=== PATIENT | male | born 1990 ===

== ENCOUNTER 2018-08-30 06:23 | Emergency (ER) | payer OTHER ==
[2018-08-30] MEDS ORDERED: Albuterol-Ipratrop 3 mg / 0.5 (3 ml) UD INH STA (07:32)
[2018-08-30] MEDS ORDERED: Albuterol-Ipratrop 3 mg / 0.5 (3 ml) UD ONE (07:49)
[2018-08-30 08:04] LABS: BASO % 0.7 % (0.0-2.0); HEMOGLOBIN 13.1 g/dL (12.0-18.0); LYMPH # 0.5 K/uL (1.0-4.3); LYMPH % 20.9 % (20.0-40.0); MEAN CELL VOLUME 82.7 fl (80.0-94.0); MEAN CORPUSCULAR HEMOGLOBIN 28.9 pg (27.0-31.0); MEAN CORPUSCULAR HGB CONC 34.9 g/dL (33.0-37.0); MEAN PLATELET VOLUME 8.3 fl (7.2-11.7); MONO # 0.2 K/uL (0.0-0.8); NEUT # 1.8 K/uL (1.8-7.0); NEUT % 69.4 % (50.0-75.0); NRBC % 0.2 % (0.0-0.0); RBC 4.54 Mil/uL (4.40-5.90); RED CELL DISTRIBUTION WIDTH 12.7 % (11.5-14.5); WHITE BLOOD COUNT 2.6 K/uL (4.8-10.8)
[2018-08-30 08:08] LABS: BLOOD UREA NITROGEN 11 mg/dl (9-20); GFR NON-AFRICAN AMERICAN > 60
--- NOTE | 2018-08-30 08:24 | RAD ---
Date of service: 08/30/2018 HISTORY: cough COMPARISON: Chest radiographs 03/21/2009 TECHNIQUE: Chest PA and lateral views FINDINGS: LUNGS: No active pulmonary disease. PLEURA: No significant pleural effusion identified. No pneumothorax apparent. CARDIOVASCULAR: No aortic atherosclerotic calcification present. Normal cardiac size. No pulmonary vascular congestion. OSSEOUS STRUCTURES: No significant abnormalities. VISUALIZED UPPER ABDOMEN: Normal. OTHER FINDINGS: None. IMPRESSION: No interval acute cardiopulmonary disease appreciated.
--- NOTE | 2018-08-30 09:42 | ED PDOC ---
HPI: Chest Pain Time Seen by Provider: 08/30/18 07:24 Chief Complaint (Nursing): Chest Pain Chief Complaint (Provider): Chest Pain History Per: Patient History/Exam Limitations: no limitations Onset/Duration Of Symptoms: Days (2) Additional Complaint(s): 27 y/o male presents to the ED complaining of chest pain. Patient had 3 previous visits with sore throat and swollen lymph nodes. Initial diagnose with viral syndrome with no given medications. Patient 2nd visit was due to allergies with medications. He started Tendomisin medication yesterday. Patient states he woke up in the middle of the night around 4am with left sided chest pain with pressure. He reports when he came to the ER the pressure is still present but less sever. Patient denies any radiation of pain or shortness of breath. PMD: none provided Past Medical History Reviewed: Historical Data, Nursing Documentation, Vital Signs Vital Signs: Last Vital Signs Temp 100.1 F H 08/30/18 06:33 Pulse 90 08/30/18 06:33 Resp 17 08/30/18 06:33 BP 131/80 08/30/18 06:33 Pulse Ox 100 08/30/18 06:33 - Medical History PMH: Asthma - Family History Family History: States: Unknown Family Hx - Home Medications Home Medications: Ambulatory Orders Medication Instructions Recorded Ibuprofen [Motrin Tab] 800 mg PO Q8 PRN #15 tab 08/30/18 - Allergies Allergies/Adverse Reactions: Allergies Allergy/AdvReac Type Severity Reaction Status Date / Time No Known Allergies Allergy Verified 08/30/18 09:54 Review of Systems ROS Statement: Except As Marked, All Systems Reviewed And Found Negative Constitutional: Negative for: Fever Cardiovascular: Positive for: Chest Pain. Negative for: Orthopnea Gastrointestinal: Negative for: Nausea, Vomiting Musculoskeletal: Negative for: Arm Pain, Back Pain Neurological: Negative for: Weakness Physical Exam - Reviewed Nursing Documentation Reviewed: Yes Vital Signs Reviewed: Yes - Physical Exam Appears: Positive for: Well, Non-toxic, No Acute Distress Head Exam: Positive for: ATRAUMATIC, NORMOCEPHALIC Skin: Positive for: Normal Color, Warm, Dry Eye Exam: Positive for: EOMI, Normal appearance, PERRL ENT: Positive for: Normal ENT Inspection, Other (mild erythema). Negative for: TM Is/Are, Tonsillar Swelling Neck: Positive for: Normal, Painless ROM, Supple Cardiovascular/Chest: Positive for: Regular Rate, Rhythm. Negative for: Murmur Respiratory: Positive for: Normal Breath Sounds. Negative for: Respiratory Distress Gastrointestinal/Abdominal: Positive for: Normal Exam, Soft. Negative for: Tenderness Lymphatic: Positive for: Other (palpable cervical lymphnodes, worst on the right. ) Neurological/Psych: Positive for: Awake, Alert, Normal Tone, Oriented (x3). Negative for: Motor/Sensory Deficits - Laboratory Results Result Diagrams: 08/30/18 07:45 08/30/18 07:45 Lab Results: Troponin I 0.0160 ng/mL (0.00-0.120) 08/30/18 07:45 - ECG O2 Sat by Pulse Oximetry: 100 Medical Decision Making Medical Decision Making: Time:735 Initial Impression: Initial Plan: -BMP -CBC -Chest x-ray -Troponin -Duoneb 3mg -Throat culture -Peak flow pre/post -Infectious mononucleosis -Influenza -Rapid strep Workup chest pain/pressure. low risk factors. Chest x-ray, send labs, strep, inf luenza, and mono. Reevaluate. 1200 Pt with improved symptoms. Troponin was detectable but WNL. Repeat troponin ordered. Will d/c if troponin does not increase. Scribe Attestation: Documented by Shani Bella, acting as a scribe for Daisy Bucio Provider Scribe Attestation: All medical record entries made by the Scribe were at my direction and personally dictated by me. I have reviewed the chart and agree that the record accurately reflects my personal performance of the history, physical exam, medical decision making, and the department course for this patient. I have also personally directed, reviewed, and agree with the discharge instructions and disposition. Disposition - Clinical Impression Clinical Impression: Acute chest pain, Upper respiratory infection - Disposition Disposition: Routine/Home Disposition Time: 13:50 Condition: IMPROVED Additional Instructions: Continue to take antibiotics. Use albuterol inhaler as needed. Follow up with primary medical doctor in one week. Prescriptions: Ibuprofen [Motrin Tab] 800 mg PO Q8 PRN #15 tab PRN Reason: Pain, Moderate (4-7) Instructions: Chest Pain That Is Not Caused by the Heart (DC), Chest Pain (DC) Forms: [facility] [facility] ([place]), [facility] ED School/Work Excuse Print Language: GE[place]GI[place]
[2018-08-30 12:27] VITALS: BP 110/78; PULSE 78; TEMP 97
[2018-08-30 14:18] VITALS: RESP 19
[2018-09-01 12:55] VITALS: O2SAT 100
== END 2018-08-30 14:34 | disposition home or self-care (01) ==
LOC: H.ER 06:23
DX: R07.9 Chest pain, unspecified (principal); J06.9 Acute upper respiratory infection, unspecified; J45.909 Unspecified asthma, uncomplicated